=== PATIENT | male | born 1965 | race Two or more races ===

== ENCOUNTER → 2024-12-12 | Outpatient (CLI) | payer BC, SELFPAY ==
--- NOTE | 2024-12-12 13:16 | XR_ITS ---
Examination: Abdomen AP single view Technique: AP portable supine abdomen, single view Exam date and time: December 12, 2024 1328 hours INDICATIONS: Right flank pain beginning 2 weeks ago. FINDINGS: No renal or ureteral calculi No hydronephrosis No free air Surgical clips upper right abdomen IMPRESSION: No renal or ureteral calculi
[2024-12-12 15:14] LABS: Collection Type, Urine Clean Catch; Squamous Epithelial Cell,Urine 0 /hpf (0-5)
[2024-12-12 16:32] LABS: Basophils % (Auto) 0 % (0-2.5); Eosinophils % (Auto) 0 % (0-10); Hematocrit 44.5 % (41.0-53.0); Hemoglobin 15.1 g/dL (13.5-16.0); Immature Granulocytes % (Auto) 0 % (0-0); Immature Granulocytes Auto 0.01 Thou/mm3 (0.00-0.00); Lymphocytes % (Auto) 18 % (10-50); Mean Corpuscular HGB Conc 33.9 g/dl (31.0-37.0); Mean Corpuscular Hemoglobin 29.1 pg (25.0-35.0); Mean Corpuscular Volume 86 fL (80-100); Monocytes # (Auto) 0.2 Thou/mm3 (0.0-0.8); Monocytes % (Auto) 3 % (0-12); Neutrophils # (Auto) 4.4 Thou/mm3 (1.8-7.7); Neutrophils % (Auto) 78 % (37-80); Nucleated Red Blood Cell % 0 /100 WBC (0); Platelet Count 217 Thou/mm3 (140-440); RDW Standard Deviation 39.7 fL (35.1-43.9); Red Blood Count 5.19 Miln/mm3 (4.50-5.90); White Blood Count 5.7 Thou/mm3 (3.8-10.6)
[2024-12-12 16:37] LABS: Glucose Estimated Average 146 mg/dL (80-131); Hemoglobin A1C 6.7 % Hgb (4.8-6.0)
[2024-12-12 16:46] LABS: Alanine Aminotransferase 26 U/L (10-49); Albumin, Serum 4.5 gm/dL (3.5-5.0); Albumin/Globulin Ratio 1.5 (1.2-2.2); Alkaline Phosphatase 65 U/L (46-116); Anion Gap 9 (7-16); Aspartate Amino Transferase 32 U/L (0-34); BUN/Creatinine Ratio 16 Ratio (12-20); Bilirubin,Total 0.4 mg/dL (0.3-1.2); Blood Urea Nitrogen 18 mg/dL (9-23); Calcium 10.4 mg/dL (8.3-10.6); Calcium (Corrected) 10.4 mg/dL (8.5-10.1); Carbon Dioxide 27.4 mMol/L (20.0-31.0); Chloride 103 mMol/L (98-107); Creatinine (Component) 1.1 mg/dL (0.6-1.3); Glucose 215 mg/dL (74-106); Osmolality,Calculated 285 (275-295); Potassium 4.1 mMol/L (3.4-5.1); Sodium 139 mMol/L (136-145); Total Protein 7.5 gm/dL (5.7-8.2); eGFR > 60 See Note
[2024-12-12 17:17] LABS: Bilirubin,Urine Negative (Negative); Blood,Urine 3+ (Negative); Clarity,Urine Turbid (Clear/Hazy); Color,Urine Yellow (Lt Yel-Yel); Culture Indicated,Urine Not Indicated; Glucose, Urine 3+ (Negative); Ketones,Urine Negative (Negative); Leukocyte Esterase,Urine Negative (Negative); Nitrite,Urine Negative (Negative); PH,Urine 6.5 (5.0-7.0); Protein,Urine 1+ (Neg - Trace); RBC,Urine 825 /hpf (0-3); Specific Gravity,Urine 1.019 (1.001-1.035); Urobilinogen,Urine Negative mg/dL (0.0-1.0); WBC,Urine 8 /hpf (0-5)
== END | disposition home or self-care (01) ==
LOC: CDIM 13:12 → COPL 13:50
PROVIDERS: PCP Family Medicine; Referring Provider Family Medicine; Visit Provider Radiology Diagnostic Radiology
DX: R11.2 Nausea with vomiting, unspecified (principal); E11.65 Type 2 diabetes mellitus with hyperglycemia; E78.2 Mixed hyperlipidemia
CPT/HCPCS: 36415; 74018; 80053; 81001; 83036; 85025

== ENCOUNTER 2024-12-13 04:01 | Emergency (ER) | payer BC, SELFPAY ==
[2024-12-13 04:04] VITALS: BMI 27.5
[2024-12-13 04:10] VITALS: BP 144/87; PULSE 78; RESP 20; TEMP 36.8; O2SAT 99
--- NOTE | 2024-12-13 04:21 | XR_ITS ---
Examination: CT abdomen and pelvis without contrast. Coronal 3-D reconstructions. Sagittal 2-D reconstructions. Date and time of exam:December 13, 2019 5044 hrs. Indications: Onset right-sided flank pain beginning 2 days ago CTDI: vol (mGy): 9.23 DLP: (mGycm): 598 Technique: Axial images of the abdomen have been obtained, 3 mm slice thickness Intravenous contrast material has not been administered. Low dose protocols were performed. One or more of the following dose reduction techniques were used; automated exposure control, adjustment of the mA and/or KV according to patient size, use of iterative reconstruction technique. Findings: No focal liver or splenic lesions Absent gallbladder No pancreatic or adrenal mass Mild right hydronephrosis secondary to 3 mm distal right ureteral calculus Aorta normal size No pericecal inflammatory change No bowel obstruction Scattered colonic diverticulosis No bladder mass or bladder calculi No significant prostatomegaly Impression: Mild right hydronephrosis secondary to 3 mm distal right ureteral calculus
--- NOTE | 2024-12-13 04:21 | EDRME_ITS ---
Rapid Medical Screening Exam FORMERLY [facility], [facility]–1983 Arrival date/time: 12/13/24 04:01 59M with history of DM presents to ED with several days of R flank pain that got suddenly worse today with some N/V. Patient had unremarkable outpatient labs done yesterday across the street, except for hematuria in UA. Patient had XR ab with no obvious kidney stone. Even though patient does not have dysuria, patient was put on ciprofloxacin, as well as Tylenol #3, and Flomax. Chief Complaint: Abdominal Pain Time Seen by Provider: 12/13/24 04:22 Vital signs: Vital Signs Temperature 98.2 F 12/13/24 04:10 Pulse Rate 78 12/13/24 04:10 Respiratory Rate 20 12/13/24 04:10 Blood Pressure 144/87 H 12/13/24 04:10 Pulse Oximetry (%) 99 12/13/24 04:10 Oxygen Delivery Method Room Air 12/13/24 04:10
[2024-12-13] MEDS: ONDANSETRON INJ 2 MG/ML INJ 2 ML 4 MG IV (04:33)
[2024-12-13] MEDS: KETOROLAC INJ 30 MG/ML VIAL IVP (04:34)
--- NOTE | 2024-12-13 05:30 | PRELIM_ITS ---
CT scan of the abdomen and pelvis without intravenous contrast (axial sections with sagittal and coronal reformats) December 13, 2024 at 0441 hours Clinical History: Right flank pain. Comparison: CT of July 06, 2020. Findings: The lung bases are clear. The liver, pancreas, spleen, and adrenals are unremarkable on this noncontrast study. Status post cholecystectomy. Right distal ureteral stone measuring 0.3 cm, the stone is at about 2.0 cm from the UVJ, the stone is not visible on the instructional media services technician image, mild right hydroureteronephrosis. Nonobstructing bilateral kidney stones. No evidence of bowel obstruction. No evidence of appendicitis. There is no mesenteric or retroperitoneal adenopathy. The urinary bladder is unremarkable. There is no free fluid or free air. Degenerative changes of the imaged portions of the spine. No acute fractures. Vascular calcifications. Diverticulosis of the colon. Impression: Right ureteral stone associated with hydroureteronephrosis. Nonobstructing bilateral nephrolithiasis. Report Electronically Signed By: Pato Palmer 12/13/2024 5:30:04 AM [EST]
--- NOTE | 2024-12-13 06:34 | PD.EDADULT ---
ED General RME/HPI General Chief complaint: Abdominal Pain Stated complaint: RIGHT FLANK PAIN Time Seen by Provider: 12/13/24 04:22 Arrival date/time: 12/13/24 04:01 RME / HPI RME / HPI narrative: 12/13/24 04:01 RME: 59M with history of DM presents to ED with several days of R flank pain that got suddenly worse today with some N/V. Patient had unremarkable outpatient labs done yesterday across the street, except for hematuria in UA. Patient had XR ab with no obvious kidney stone. Even though patient does not have dysuria, patient was put on ciprofloxacin, as well as Tylenol #3, and Flomax. JUAN JOSÉ HPI: 59M otherwise healthy with 4-5 days of right flank pain, without dysuria or hematuria. He was empirically prescribed Flomax by his primary care doctor with his first dose yesterday. As per primary care doctor recommendations he comes to the emergency department with pain is worsening. He denies fevers chills or sweats. He has mild nausea without vomiting. He was prescribed Tylenol 3 for the pain of which he took which had minimal improvement. On my encounter patient had received ketorolac and is pain-free. Related Data Home Medications ?Medication ?Instructions ?Recorded ?Confirmed metformin 1,000 mg tablet 1,000 mg PO BID 07/06/20 07/06/20 Held on 08/26/20. Instructions: Resume on 08/29/20. ascorbic acid (vitamin C) 1,000 mg 1 g PO BID 08/25/20 08/25/20 tablet (Vitamin C) aspirin 81 mg tablet 81 mg PO EVERYOTHERDAY 08/25/20 08/25/20 Held on 08/26/20. Instructions: Resume on 08/28/20. cholecalciferol (vitamin D3) 50 50 mcg PO QDAY 08/25/20 08/25/20 mcg (2,000 unit) capsule (Vitamin D3) cinnamon bark 500 mg capsule 500 mg PO QDAY 08/25/20 08/25/20 (Cinnamon) empagliflozin 25 mg tablet mg 08/25/20 (Jardiance) fenofibrate 54 mg tablet 54 mg PO QDAY 08/25/20 08/25/20 folic acid 800 mcg tablet 800 08/25/20 magnesium 500 mg tablet PO 08/25/20 milk thistle 500 mg capsule mg 08/25/20 08/25/20 omega-3 fatty acids PO 08/25/20 prasterone (dhea) 25 mg capsule 25 mg PO QDAY 08/25/20 08/25/20 (DHEA) zinc 50 mg capsule 50 mg PO QDAY 08/25/20 08/25/20 Previous Rx's ?Medication ?Instructions ?Recorded ibuprofen 600 mg tablet 600 mg PO Q8H PRN pain #14 tabs 12/13/24 Allergies Allergy/AdvReac Type Severity Reaction Status Date / Time No Known Allergies Allergy Verified 08/25/20 14:36 Review of Systems Review of Systems Systems Reviewed: All systems reviewed, normal except as documented ED Exam Narrative Physical exam: GENERAL APPEARANCE: AxOx4, generally well-appearing, no acute distress. HEENT: NC, AT. MMM. EOMI, clear conjunctiva, oropharynx clear. NECK: Supple without lymphadenopathy. No stiffness or restricted ROM. HEART: Normal rate and regular rhythm, normal S1/S1, no m/r/g LUNGS: CTAB, moving air well. No crackles or wheezes are heard. ABDOMEN: Soft, nontender, nondistended with good bowel sounds heard. BACK: No midline C/T/L spine pain or deformity, No CVAT, no obvious deformity. EXTREMITIES: Without cyanosis, clubbing or edema. MUSCULOSKELETAL: FROM of all major joints, no chest tenderness NEUROLOGICAL: Grossly nonfocal. Alert and oriented, moving all 4 extremities. CN not formally tested but appear grossly intact. Observed to ambulate with normal gait. Skin: Warm and dry without any rash. Course Quality Measures none Orders Category Date Time Status Insert IV NOW Care 12/13/24 04:[address] abdomen pelvis wo con Stat Exams 12/13/24 04:21 Completed Ketorolac Inj [Toradol Inj] Med 12/13/24 04:27 Discontinued 30 mg IVP X1 ONE Ketorolac Inj [Toradol Inj] Med 12/13/24 04:21 Discontinued 60 mg IM X1 ONE Ondansetron Inj [Zofran Inj] Med 12/13/24 04:27 Discontinued 4 mg IV X1 ONE Ondansetron Odt [Zofran Odt] Med 12/13/24 04:21 Discontinued 4 mg PO X1 ONE Vital Signs Vital signs: Vital Signs Temperature 98.2 F 12/13/24 04:10 Pulse Rate 78 12/13/24 04:10 Respiratory Rate 20 12/13/24 04:10 Blood Pressure 144/87 H 12/13/24 04:10 Pulse Oximetry (%) 99 12/13/24 04:10 Oxygen Delivery Method Room Air 12/13/24 04:10 SpO2 99% on room air, patient is not hypoxic MDM Patient data External records reviewed:: [facility] previous records Clinical information provided by:: patient Social determinants that could affect healthcare access:: none Patient has the following chronic illnesses:: None How is presenting disease/condition affected by chronic disease/condition?: no chronic disease Evaluation data The following diagnostics were reviewed and interpreted by me:: radiology exam(s) Lab and/or radiology exams considered but not ordered:: As per narrative Interpretation Summary: As per narrative Medications Medications considered but not ordered:: None Medication administrations:: Medication Administration History Discontinued Medications Ketorolac Tromethamine (Ketorolac Inj 60 Mg/2 Ml Vial) 60 mg IM X1 ONE Stop: 12/13/24 04:22 Last Admin: 12/13/24 04:33 Dose: Not Given Documented By: TC Non-Admin Reason: Discontinued Ketorolac Tromethamine (Ketorolac Inj 30 Mg/Ml Vial) 30 mg IVP X1 ONE Stop: 12/13/24 04:28 Last Admin: 12/13/24 04:34 Dose: 30 mg Documented By: JOJO Ondansetron HCl (Ondansetron Odt 4 Mg Tabrap) 4 mg PO X1 ONE; Protocol Stop: 12/13/24 04:22 Last Admin: 12/13/24 04:33 Dose: Not Given Documented By: JOJO Non-Admin Reason: Discontinued Ondansetron HCl (Ondansetron Inj 2 Mg/Ml Inj 2 Ml) 4 mg IV X1 ONE; Protocol Stop: 12/13/24 04:28 Last Admin: 12/13/24 04:33 Dose: 4 mg Documented By: JOJO Above Consultations Consultation(s) initiated? (list below): No Diagnosis Differential Diagnosis ED Complaint MDM: Renal colic, pyelonephritis, UTI Most likely diagnosis given after review of the tests above:: See below Admission Indicated Admission indicated?: not indicated Explain why admission is indicated or not indicated:: As per narrative Admission Request Was there a request for admission?: No Disposition Plan Disposition Plan: Discharge Discharge Attestation Discharge Attestation: The patient and all family members were given an opportunity to ask questions and understood the discharge instructions. Discharge instructions specifically effects, indications for sooner follow up or return to the emergency department, and the expected course of current diagnosis. Patient condition: Stable Medical Decision Making MDM Narrative MDM Narrative: Mr. Salvador is a clinically well-appearing gentleman who presents with reported symptoms that are consistent with renal colic. after the RME process he was given ketorolac and pain-free with a benign exam. He has started Flomax for some hematuria that was done on testing yesterday by his primary care doctor. I reviewed the laboratory test at that time that shows no renal dysfunction, with urinalysis showing hematuria without signs of bacteriuria or clinically significant pyuria. Symptoms are consistent with renal colic, CT scan was ordered via the RME process which confirms a 3 mm stone at the distal ureter. This is a small enough size to pass expectantly. Repeat laboratory testing and urinalysis not indicated today. He does not show signs of urinary tract infection therefore he has been advised to stop the ciprofloxacin. He can continue the Flomax, and as ketorolac was very effective here in the emergency department in view scribe prescription dose ibuprofen to start and then he can use his Tylenol 3 for breakthrough pain. As patient is now asymptomatic, stable vital signs, no acute findings on his workup he is appropriate for outpatient management. Differential Diagnosis Differential Diagnosis: Renal colic, pyelonephritis, UTI Discharge Plan Plan Patient Disposition: HOME (Self Care) Prescriptions/Referrals Prescriptions/Med Rec: New ibuprofen 600 mg tablet 600 mg PO Q8H PRN (Reason: pain) Qty: 14 0RF No Action metformin 1,000 mg Tablet 1,000 mg PO BID ascorbic acid (vitamin C) [Vitamin C] 1,000 mg Tablet 1 g PO BID cinnamon bark [Cinnamon] 500 mg Capsule 500 mg PO QDAY cholecalciferol (vitamin D3) [Vitamin D3] 50 mcg (2,000 unit) Capsule 50 mcg PO QDAY magnesium 500 mg Tablet PO omega-3 fatty acids Capsule PO zinc 50 mg Capsule 50 mg PO QDAY fenofibrate 54 mg Tablet 54 mg PO QDAY Jardiance 25 mg Tablet folic acid 800 mcg Tablet 800 milk thistle 500 mg Capsule prasterone (dhea) [DHEA] 25 mg Capsule 25 mg PO QDAY aspirin 81 mg Tablet 81 mg PO EVERYOTHERDAY Referrals: Nir Kumar MD [Primary Care Provider] - In 1 week Problem List Clinical Impression: Ureterolithiasis Patient/Caregiver Discharge Instructions Education Materials: ED Kidney Stone w/ Colic Additional Instructions: You can continue taking the Flomax that was prescribed to you. An anti-inflammatory pain medicine has been sent to the pharmacy that helps with kidney stone pain. You do not need to take the antibiotic (ciprofloxacin) that was prescribed by by your primary care doctor after reviewing your urine laboratory results from yesterday. Follow-up with your primary care doctor in 1 week for recheck. You can return to the emergency department sooner symptoms worsen or if you notice any new, concerning issues. Print Language: Divehi Stand Alone Forms: [employer] Award Info., Patient Portal Info Letter
[2024-12-13 06:43] VITALS: BP 142/78; PULSE 67; RESP 18; TEMP 36.7; O2SAT 97
== END 2024-12-13 06:44 | disposition home or self-care (01) ==
PROVIDERS: Emergency Provider Emergency Medicine; PCP Family Medicine
DX: N20.1 Calculus of ureter (principal)
CPT/HCPCS: 74176; 96374; 96375; 99284; J1885; J2405

== ENCOUNTER 2024-12-15 21:04 | Emergency (ER) | payer BC, SELFPAY ==
[2024-12-15 21:05] VITALS: BMI 27.2
[2024-12-15 21:25] VITALS: BP 164/91; PULSE 82; RESP 20; TEMP 37.1; O2SAT 97
--- NOTE | 2024-12-15 21:53 | EDNOTE_ITS ---
<Statement entered by Leti Madsen MD - 12/15/24 23:40> As co-signing physician, I was present and available for consult prn. I concur with the plan and care as documented by the midlevel provider. ED Back Injury Pain RME/HPI General Chief Complaint: Urogenital-Male Stated Complaint: Kidney stone pain Time Seen by Provider: 12/15/24 21:35 Arrival date/time: 12/15/24 21:04 59M with history of DM presents to ED with continued R flank pain and N/V, as well as several hours of urinary retention. Patient was recently here for this and diagnosed with 3 mm distal R kidney stone. Patient has been taking Flomax. Labs were unremarkable. Limitations: no limitations Related Data Home Medications ?Medication ?Instructions ?Recorded ?Confirmed metformin 1,000 mg tablet 1,000 mg PO BID 07/06/20 Held on 08/26/20. Instructions: Resume on 08/29/20. ascorbic acid (vitamin C) 1,000 mg 1 g PO BID 08/25/20 08/25/20 tablet (Vitamin C) aspirin 81 mg tablet 81 mg PO EVERYOTHERDAY 08/2508/25/20 Held on 08/26/20. Instructions: Resume on 08/28/20. cholecalciferol (vitamin D3) 50 50 mcg PO QDAY 0 08/25/20 mcg (2,000 unit) capsule (Vitamin D3) cinnamon bark 500 mg capsule 500 mg PO QDAY 08/25/20 1 10/25/19 (Cinnamon) empagliflozin 25 mg tablet mg 08/25/20 (Jardiance) fenofibrate 54 mg tablet 54 mg PO QDAY 08/25/2008/25 folic acid 800 mcg tablet 800 08/25/20 magnesium 500 mg tablet PO 08/25/20 milk thistle 500 mg capsule mg 08/25/20 08/25/20 omega-3 fatty acids PO 08/25/20 prasterone (dhea) 25 mg capsule 25 mg PO QDAY 08/25/20 08/25/20 (DHEA) zinc 50 mg capsule 50 mg PO QDAY 08/25/2008/25 Previous Rx's ?Medication ?Instructions ?Recorded ibuprofen 600 mg tablet 600 mg PO Q8H PRN pain #14 t abs 12/13/24 Allergies Allergy/AdvReac Type Severity Reaction Status Date / Time No Known Allergies Allergy Verified 08/25/20 14:36 Review of Systems Review of Systems Systems Reviewed: All systems reviewed, normal except as documented Constitutional Constitutional: Reports system reviewed and no additional complaints, except as documented, Denies fever(s) and Denies headache(s) ENT Ears, Nose, Mouth, and Throat: Denies disequilibrium and Denies headache(s) Cardiovascular Cardiovascular: Reports system reviewed and no additional complaints, except as documented, Denies chest pain and Denies dyspnea Respiratory Respiratory: Reports system reviewed and no additional complaints, except as documented, Denies cough and Denies dyspnea Gastrointestinal Gastrointestinal: Reports system reviewed and no additional complaints, except as documented, Reports as per HPI, Denies abdominal pain, Reports nausea and Reports vomiting Genitourinary Genitourinary: Reports as per HPI, Reports difficulty urinating and Reports flank pain Neurologic Neurologic: Reports system reviewed and no additional complaints, except as documented, Denies confusion, Denies disequilibrium and Denies headache(s) Psychiatric Psychiatric: Denies confusion Past Medical History Past Medical History NEUROLOGIC: Negative Neurological Disorders, Transient Ischemic Attacks (TIA), Brain Tumor, Meningitis, Seizures, Epilepsy, Cerebral Palsy, Migraine, Head Trauma or Traumatic Brain Injury CARDIAC: Positive Cardiac Disorders and Hypercholesterolemia; Negative Myocardial Infarction, Cardiac Arrhythmia, Atrial Fibrillation, Angina, Aneurysm, Congestive Heart Failure, Rheumatic Fever, Edema, Cellulitis, Hypertension or Hypotension RESPIRATORY: Negative Chronic Obstructive Pulmonary Disease (COPD), Asthma, Bronchitis or Pneumonia GASTROINTESTINAL: Positive Gall Bladder Disease (cholecystectomy) and Obesity; Negative Gastrointestinal Disorders, Cirrhosis, Pancreatitis, Celiac Disease, Gastrointestinal Bleed, Colitis, Ulcerative Colitis, Diverticulitis, Diverticulosis, Ulcer, Hiatal Hernia, Hemorrhoids or Gastroesophageal Reflux Disease GENITOURINARY: Negative Genitourinary Disorders, Renal Disease, Kidney Stones or Benign Prostatic Hyperplasia MUSCULOSKELETAL: Negative Musculoskeletal Disorders, Arthritis, Osteoporosis, Degenerative Disk Disease or Degenerative Joint Disease ENT: Negative Cataracts, Glaucoma or Head Trauma ENDOCRINE: Positive Endocrine Disorders and Diabetes Mellitus Type 2; Negative Diabetes Mellitus Type 1, Hypoglycemia, Hyperthyroidism or Hypothyroidi sm HEMATOLOGIC: Negative Blood Disorders, Anemia, Leukemia, Hemophilia, Sickle Cell Disease or Clotting Problems PSYCHO/SOCIAL: Negative Psychiatric Problems, Bipolar Disorder, Depression, Anxiety, Behavior Problems or Eating Disorder OTHER HISTORY: Positive Hospitalization (for appendectomy and cholecystectomy); Negative Autoimmune Disease, Autism, Blood Transfusions, Anesthesia Reactions, Chicken Pox, Measles, Mumps, Rubella ([place] Measles), Pertussis or Cancer Family History FAMILY HISTORY: Positive Family Cardiac Disorders (father passed from [place], sister had heart transplant, mother had pacemaker.) and Family Surgery (pacemaker placement, cholecystectomy:mother,father,brother,sister.); Negative Family Psychiatric Problems, Family Respiratory Disorders, Family Gastrointestinal Problems, Family Cancer or Family Anesthesia Reaction Surgical History SURGICAL: Positive Abdominal Surgery and Vasectomy; Negative Cardiac Surgery, Open Heart Surgery, Pacemaker, Angiogram, Auto Implanted Cardiovert Defib, Carotid Endarterectomy, Endocrine Surgery, Thyroidectomy, Eye Surgery, Nose Surgery, Oral Surgery or Joint Replacement Social History SMOKING STATUS: Never smoker ED Exam General Limitations: Present no limitations General appearance: Present alert and in no apparent distress Head Head exam: Present atraumatic Eye Eye exam: Present normal appearance, PERRL and EOMI ENT ENT exam: Present normal exam, normal oropharynx and mucous membranes moist Neck Neck exam: Present normal inspection, full ROM and trachea midline Chest Chest inspection: Present normal inspection and symmetric chest wall rise Respiratory Respiratory exam: Present normal lung sounds bilaterally Cardiovascular Cardiovascular exam: Present regular rate, normal rhythm and normal heart sounds Abdominal Exam Abdominal exam: Present soft and normal bowel sounds Extremities Exam Extremities exam: Present normal inspection and full ROM Back Exam Back exam: Present normal inspection and full ROM Neurological Exam Neurological exam: Present alert, oriented X3 and CN II-XII intact Psychiatric Psychiatric exam: Present normal affect and normal mood Skin Skin exam: Present warm, dry, intact and normal color Course Quality Measures none Orders Category Date Time Status Ma [Urinary Catheter] QS Care 12/15/24 21:36 Active Ma to Leg Bag Routine Care 12/15/24 21:37 Ordered Ketorolac Inj [Toradol Inj] Med 12/15/24 21:36 Discontinued 60 mg IM X1 ONE Ondansetron Odt [Zofran Odt] Med 12/15/24 21:36 Discontinued 4 mg PO X1 ONE Vital Signs Vital signs: Vital Signs Temperature 98.7 F 12/15/24 21:25 Pulse Rate 82 12/15/24 21:25 Respiratory Rate 20 12/15/24 21:25 Blood Pressure 164/91 H 12/15/24 21:25 Pulse Oximetry (%) 97 12/15/24 21:25 Oxygen Delivery Method Room Air 12/15/24 21:25 O2 at 97% on RA and WNLs Back Pain / Injury MDM Narrative MDM Narrative:: 59M with history of DM presents to ED with continued R flank pain and N/V, as well as several hours of urinary retention. Patient was recently here for this and diagnosed with 3 mm distal R kidney stone. Patient has been taking Flomax. Labs were unremarkable. Physical exam reveals no flank tenderness. Patient is afebrile, alert, but appears to be in pain. Ma placed, 650 mL out, which relieved symptoms. Project Coach given. Patient data External records reviewed:: [facility] previous records Clinical information provided by:: patient Social determinants that could affect healthcare access:: none Patient has the following chronic illnesses:: DM How is presenting disease/condition affected by chronic disease/condition?: exacerbated by Evaluation data The following diagnostics were reviewed and interpreted by me:: other (specify) (none) Lab and/or radiology exams considered but not ordered:: not ordered Interpretation Summary: n/a Medications / Prescriptions Medications or Prescriptions considered but not ordered:: ordered Medication administrations:: Medication Administration History Discontinued Medications Ketorolac Tromethamine (Ketorolac Inj 60 Mg/2 Ml Vial) 60 mg IM X1 ONE Stop: 12/15/24 21:37 Last Admin: 12/15/24 21:55 Dose: 60 mg Documented By: Ondansetron HCl (Ondansetron Odt 4 Mg Tabrap) 4 mg PO X1 ONE; Protocol Stop: 12/15/24 21:37 Last Admin: 12/15/24 21:55 Dose: 4 mg Documented By: above Consultations Consultation(s) initiated? (list below): No Diagnosis Differential diagnosis back pain/injury: lumbar radiculopathy, sciatica, strain of lumbar region, renal colic, pyelonephritis, thoracic back pain, AAA, discitis and other (kidney stone, urinary retention) Most likely diagnosis given after review of the tests above:: kidney stone and urinary retention Admission Indicated Admission indicated?: not indicated Admission Request Was there a request for admission?: No Disposition Plan Disposition Plan: Discharge Discharge Attestation Discharge Attestation: The patient and all family members were given an opportunity to ask questions and understood the discharge instructions. Discharge instructions specifically effects, indications for sooner follow up or return to the emergency department, and the expected course of current diagnosis. Patient condition: Stable Discharge Plan Plan Patient Disposition: HOME (Self Care) Disposition Comment: Stable Prescriptions/Referrals Prescriptions/Med Rec: No Action metformin 1,000 mg Tablet 1,000 mg PO BID ascorbic acid (vitamin C) [Vitamin C] 1,000 mg Tablet 1 g PO BID cinnamon bark [Cinnamon] 500 mg Capsule 500 mg PO QDAY cholecalciferol (vitamin D3) [Vitamin D3] 50 mcg (2,000 unit) Capsule 50 mcg PO QDAY magnesium 500 mg Tablet PO omega-3 fatty acids Capsule PO zinc 50 mg Capsule 50 mg PO QDAY fenofibrate 54 mg Tablet 54 mg PO QDAY Jardiance 25 mg Tablet folic acid 800 mcg Tablet 800 milk thistle 500 mg Capsule prasterone (dhea) [DHEA] 25 mg Capsule 25 mg PO QDAY aspirin 81 mg Tablet 81 mg PO EVERYOTHERDAY ibuprofen 600 mg tablet 600 mg PO Q8H PRN (Reason: pain) Qty: 14 0RF Problem List Clinical Impression: Ureterolithiasis, Acute urinary retention Patient/Caregiver Discharge Instructions Additional Instructions: Please follow-up with PCP within 24-48 hours and return immediately if symptoms worsen. Keep taking Flomax. See PCP for void trial. Print Language: Maltese Stand Alone Forms: Patient Portal Info Letter PA/DIRECTOR GLOBAL INTELLIGENCE Supervising Physician STACY/ROSITA Supervising Physician: Dr. Madsen
[2024-12-15] MEDS: KETOROLAC INJ 60 MG/2 ML VIAL IM (21:55)
[2024-12-15] MEDS: ONDANSETRON ODT 4 MG TABRAP PO (21:55)
== END 2024-12-15 23:00 | disposition home or self-care (01) ==
LOC: SERX 12-16 00:35
PROVIDERS: Emergency Provider Emergency Medicine
DX: N20.2 Calculus of kidney with calculus of ureter (principal); E11.9 Type 2 diabetes mellitus without complications
CPT/HCPCS: 51702; 96372; 99283; J1885; Q0162

== ENCOUNTER → 2025-01-31 | Outpatient (BNVA) | payer BC, SELFPAY | END | disposition home or self-care (01) | PROVIDERS: PCP Family Medicine; Referring Provider Family Medicine; Visit Provider Urology | DX: N40.1 Benign prostatic hyperplasia with lower urinary tract symptoms (principal); N13.8 Other obstructive and reflux uropathy; N13.2 Hydronephrosis with renal and ureteral calculous obstruction; N39.0 Urinary tract infection, site not specified; E78.00 Pure hypercholesterolemia, unspecified | CPT/HCPCS: 81003; 96372; 99203; J1580; G0463 ==

== ENCOUNTER → 2025-03-21 | Outpatient (BNVA) | payer BC, SELFPAY | END | disposition home or self-care (01) | PROVIDERS: PCP Family Medicine; Referring Provider Family Medicine; Visit Provider Urology | DX: N40.1 Benign prostatic hyperplasia with lower urinary tract symptoms (principal); R39.12 Poor urinary stream; E78.00 Pure hypercholesterolemia, unspecified; E11.9 Type 2 diabetes mellitus without complications | CPT/HCPCS: 51741; 51798 ==

== ENCOUNTER → 2025-06-25 | Outpatient (CLI) | payer BC, SELFPAY ==
[2025-06-25 09:20] LABS: Collection Type, Urine Clean Catch
[2025-06-25 09:49] LABS: Bilirubin,Urine Negative (Negative); Blood,Urine Negative (Negative); Clarity,Urine Clear (Clear/Hazy); Color,Urine Lt-Yellow (Lt Yel-Yel); Glucose, Urine 4+ (Negative); Ketones,Urine Negative (Negative); Leukocyte Esterase,Urine Negative (Negative); Nitrite,Urine Negative (Negative); PH,Urine 5.5 (5.0-7.0); Protein,Urine Negative (Neg - Trace); RBC,Urine 4 /hpf (0-3); Specific Gravity,Urine 1.028 (1.001-1.035); Squamous Epithelial Cell,Urine < 1 /hpf (0-5); Urobilinogen,Urine Negative mg/dL (0.0-1.0); WBC,Urine 1 /hpf (0-5)
[2025-06-25 09:53] LABS: Glucose Estimated Average 143 mg/dL (80-131); Hemoglobin A1C 6.6 % Hgb (4.8-6.0)
[2025-06-25 09:56] LABS: INR 1.0 (0.9-1.3); Partial Thromboplastin Time 25.9 Seconds (22.0-36.0); Prothrombin Time 11.4 Seconds (9.0-12.2)
[2025-06-25 10:00] LABS: Prostate Specific Antigen 0.65 ng/mL (0-4.00)
[2025-06-25 10:15] LABS: Creatinine MALB Rnd Ur 91 mg/dL (30-125); Microalbumin Creat Ratio 82 mg/gCrea (<30); Microalbumin, Random Urine 75 mg/L (0-300)
[2025-06-25 10:41] LABS: Alanine Aminotransferase 23 U/L (10-49); Albumin, Serum 4.4 gm/dL (3.5-5.0); Albumin/Globulin Ratio 1.7 (1.2-2.2); Alkaline Phosphatase 35 U/L (46-116); Anion Gap 8 (7-16); Aspartate Amino Transferase 22 U/L (0-34); BUN/Creatinine Ratio 14 Ratio (12-20); Bilirubin,Total 0.5 mg/dL (0.3-1.2); Blood Urea Nitrogen 17 mg/dL (9-23); Calcium 10.3 mg/dL (8.3-10.6); Calcium (Corrected) 10.3 mg/dL (8.5-10.1); Carbon Dioxide 26.7 mMol/L (20.0-31.0); Cardiac Risk Estimate 5.2 RATIO (4.0-6.7); Chloride 103 mMol/L (98-107); Cholesterol 204 mg/dL (132-200); Creatinine (Component) 1.2 mg/dL (0.6-1.3); Globulin 2.6 gm/dL (2.3-3.5); Glucose 121 mg/dL (74-106); HDL Cholesterol 39 mg/dL (40-60); LDL Cholesterol,Calculated 120 mg/dL (0-130); Osmolality,Calculated 278 (275-295); Potassium 4.3 mMol/L (3.4-5.1); Sodium 138 mMol/L (136-145); Total Protein 7.0 gm/dL (5.7-8.2); Triglycerides 224 mg/dL (30-150); Uric Acid 5.0 mg/dL (3.7-9.2); eGFR > 60 See Note
[2025-07-01 09:08] LABS: Factor V Leiden Mutation NEGATIVE; Prothrombin Fac II Mutation NEGATIVE
[2025-07-08 06:23] LABS: Antithrombin III, Activity 91 % normal (80-135); Antithrombin III, Antigen 99 % normal (80-120); Protein C Activity* 163 % normal (70-180); Protein S Activity* 119 % normal (70-150)
== END | disposition home or self-care (01) ==
LOC: COPL 08:32
PROVIDERS: PCP Family Medicine; Referring Provider Family Medicine; Visit Provider Family Medicine
DX: E11.69 Type 2 diabetes mellitus with other specified complication (principal); I82.402 Acute embolism and thrombosis of unspecified deep veins of left lower extremity; E78.2 Mixed hyperlipidemia; I10 Essential (primary) hypertension; E79.0 Hyperuricemia without signs of inflammatory arthritis and tophaceous disease; N40.1 Benign prostatic hyperplasia with lower urinary tract symptoms
CPT/HCPCS: 36415; 80053; 80061; 81001; 81240; 81241; 82043; 82570; 83036; 84153; 84550; 85300; 85301; 85303; 85306; 85610; 85730